=== PATIENT | female | born 1980 | race Caucasian/White ===

== ENCOUNTER 2022-06-13 13:53 | Outpatient (CLI) | payer OTHER, SELFPAY ==
--- NOTE | 2022-06-13 14:00 | CRLHL7_ITS ---
For Patients: As a result of the Cures Act, medical imaging exams and procedure reports are released immediately into your electronic medical record. You may view this report before your referring provider. If you have questions, please contact your health care provider. BILATERAL DIGITAL SCREENING MAMMOGRAM WITH TOMOSYNTHESIS AND COMPUTER-AIDED DETECTION CLINICAL HISTORY: Routine screening exam. COMPARISON: 06/10/2021, 06/08/2020, 06/06/2019. TECHNIQUE: Digital mammogram in CC and MLO projections including computer-aided detection (CAD). Tomosynthesis utilized. BREAST COMPOSITION: The breasts are heterogeneously dense, which may obscure small masses. FINDINGS: RIGHT Breast: Right CC view does not contain enough posterior tissue. LEFT Breast: No suspicious findings. IMPRESSION: Incomplete RIGHT CC view. Technical repeat indicated. RECOMMENDATIONS: Repeat RIGHT CC 3D mammogram. BI-RADS Category 0: Incomplete: Need Additional Imaging Evaluation [facility] will contact the patient for follow-up. A lay language report of this examination will be provided to the patient. Dictated by Rory Lozano MD @ 06/27/2022 1:08:45 PM jj/Dictated by: Rory Lozano MD @ 06/27/2022 1:08:00 PM (Electronically Signed) - ADDENDUM ----- REPEAT 3D CC MAMMOGRAM, TECHNICAL REPEAT CLINICAL HISTORY: Routine screening exam. COMPARISON: 06/10/2021, 06/08/2020, 06/06/2019 TECHNIQUE: Digital mammogram in CC projection including computer-aided detection (CAD). BREAST COMPOSITION: HETEROGENEOUSLY DENSE FINDINGS: RIGHT Breast: REPEAT 3D CC MAMMOGRAM SUBMITTED IS NORMAL. NORMAL FIBROGLANDULAR TISSUE. BENIGN CALCIFICATIONS LATERALLY. BIOPSY CLIP. IMPRESSION: Normal repeat 3D cc right breast mammogram. RECOMMENDATIONS: Routine annual bilateral screening mammography. BI-RADS Category 1: Negative. Dictated by Rory Lozano MD @ Jun 27 2022 1:08PM Signed by:?Rory Lozano MD @06/27/2022 1:53:53 PM (Electronic Signature)
== END 2022-06-13 13:54 | disposition home or self-care (01) ==
LOC: MAMMO 13:58
PROVIDERS: PCP Family Medicine; Visit Provider Internal Medicine Hematology & Oncology
DX: Z12.31 Encounter for screening mammogram for malignant neoplasm of breast (principal); R92.2 Inconclusive mammogram
CPT/HCPCS: 77063; 77067

== ENCOUNTER 2022-11-29 14:14 | Outpatient (CLI) | payer OTHER, MEDICAID, SELFPAY ==
--- NOTE | 2022-11-29 14:30 | CRLHL7_ITS ---
For Patients: As a result of the 21st Century Cures Act, medical imaging exams and procedure reports are released immediately into your electronic medical record. You may view this report before your referring provider. If you have questions, please contact your health care provider. BILATERAL BREAST MRI WITHOUT AND WITH GADOLINIUM CLINICAL HISTORY: 42-year-old female with BRCA2 gene mutation positive. Family history of breast cancer maternal age 60. Ovarian cancer in a maternal aunt at age 50. History of bilateral benign needle biopsies. INDICATION FOR BREAST MRI: Screening breast MRI in this high-risk woman. COMPARISON STUDIES: MRI 11/22/2021. Mammogram 06/13/2022 CONTRAST: 15 mL Dotarem TECHNIQUE: The patient was positioned prone using a breast coil. Multiple imaging sequences were obtained using 1-1.5 mm thick slices with no gap. The image sequences include T2-weighted STIR in the axial plane, T1-weighted nonfat-saturated gradient echo in the axial plane, pre- and post-contrast T1-weighted FLASH 3D with fat suppression in the axial plane, and T1-weighted FLASH high resolution 3D with fat suppression in the sagittal plane. Image post-processing was performed on a [employer] workstation. Complex 3D rendering including maximum intensity projections (MIPS) and volumetric renderings were obtained to optimize visualization of the extent of pathology and relationship to the nipple, skin, and chest wall. This aids in determining feasibility of breast conservation surgery. Subtraction, multiplanar reconstruction, mean curve determination, and angiogenesis mapping were also performed. The study was technically adequate. FINDINGS: Amount of Fibroglandular Tissue: Heterogeneous fibroglandular tissue. Breast Background Enhancement: Moderate. RIGHT/LEFT Breast: No suspicious mass or mass enhancement seen either breast. Nodular parenchymal enhancement. Lymph Nodes: No abnormal axillary lymph nodes. IMPRESSIONS AND RECOMMENDATIONS: 1. No MRI findings of malignancy in either breast. Recommend continue with yearly screening mammography alternating at 6 month intervals with screening mammograms. BI-RADS: 2 Dictated by Alyce Ordoñez MD @ 11/30/2022 9:19:46 AM (Electronically Signed)
== END 2022-11-29 14:15 | disposition home or self-care (01) ==
LOC: MRI 14:16
PROVIDERS: PCP Family Medicine; Visit Provider Internal Medicine Hematology & Oncology
DX: Z12.39 Encounter for other screening for malignant neoplasm of breast (principal); Z15.01 Genetic susceptibility to malignant neoplasm of breast
CPT/HCPCS: 77049; A9575

== ENCOUNTER 2023-06-15 07:35 | Outpatient (CLI) | payer OTHER, MEDICAID, SELFPAY ==
--- NOTE | 2023-06-15 07:45 | CRLHL7_ITS ---
For Patients: As a result of the Century Cures Act, medical imaging exams and procedure reports are released immediately into your electronic medical record. You may view this report before your referring provider. If you have questions, please contact your health care provider. BILATERAL SCREENING MAMMOGRAM WITH COMPUTER-AIDED DETECTION AND TOMOSYNTHESIS TECHNIQUE: CC and MLO views were obtained. These mammographic images have been obtained using full-field digital technique. These mammographic images were interpreted with the benefit of computer-aided detection. Breast tomosynthesis was used in this interpretation. COMPARISON FILM: 06/13/22, 06/10/21, 06/08/20. FINDINGS: The breasts are heterogeneously dense, which may obscure small masses. IMPRESSION: There is no radiographic evidence for malignancy. ASSESSMENT: BI-RADS Category 1: Negative RECOMMENDATION: Routine screening mammogram in 1 year. A lay language report of this examination will be provided to the patient. RORY SÁNCHEZ M.D. Diagnostic Radiologist [email or web address] Transcribed: 06/15/2023, 2:[address]/Dictated by: Rory Sánchez MD @ 06/15/2023 8:55:00 AM (Electronically Signed)
== END 2023-06-15 07:36 | disposition home or self-care (01) ==
LOC: MAMMO 07:36
PROVIDERS: PCP Family Medicine; Visit Provider Nurse Practitioner Adult Health
DX: Z12.31 Encounter for screening mammogram for malignant neoplasm of breast (principal); R92.2 Inconclusive mammogram
CPT/HCPCS: 77063; 77067

== ENCOUNTER 2023-10-26 12:03 | Emergency (ER) | payer BC, MEDICAID, SELFPAY ==
[2023-10-26 12:15] VITALS: BP 117/80; PULSE 78; RESP 16; TEMP 36.6; O2SAT 99; BMI 16.3
--- NOTE | 2023-10-26 12:39 | ED_ITS ---
HPI - General Adult General Chief complaint: Abdominal Pain Stated complaint: blood in urine Time Seen by Provider: 10/26/23 12:06 Source: patient Mode of arrival: ambulatory Limitations: no limitations History of Present Illness HPI narrative: 43-year-old female coming in today with abdominal pain and blood in her urine. Patient was diagnosed with a UTI about 1 week ago and finished her antibiotics. Her symptoms did resolve around day 3. However yesterday she developed right- sided abdominal pain that went from just below the lateral ribs all the way down to the groin. The pain was a 10/10 yesterday and she laid in bed most of the day. She felt nauseated but did not vomit. She had blood in her urine. She denies any fevers or chills. She did take ibuprofen and Tylenol around the clock yesterday. This morning she got up in her pain was significantly better down to a 3/10. She called her doctor to be seen and she had a virtual visit with blood work. Her CBC showed a white cell count of 4.5, hemoglobin of 12.8 and a platelet count of 164. Her UA showed trace leukocyte esterase and moderate blood with 11-25 rbc's. She had a creatinine checked which was 1.4. She states that her doctor told her to come to the ER to get an abdominal CT scan. Again, patient states that she feels much better today. She is no longer nauseated. And she did not see blood in her urine this morning. Her past surgical history is significant for appendectomy, total abdominal hysterectomy and bilateral oophorectomy. Related Data Allergies Allergy/AdvReac Type Severity Reaction Status Date / Time No Known Drug Allergies Allergy Verified 10/26/23 12:14 Review of Systems Status of ROS: Reports: 10 or more systems reviewed and unremarkable except as noted in History and below [facility] Social History Smoking Status: Never smoker How often do you have a drink containing alcohol: 2-4 times a month How many standard drinks containing alcohol do you have on a typical day: 1 or 2 AUDIT-C Alcohol total score: 2 Non-prescribed substance use: denies use Exam Narrative: Exam Narrative: Well-nourished well-developed patient in no acute distress. Alert and oriented. Answers questions appropriately. Mood and affect are appropriate. Thoughts are goal oriented and rational. No tangential or magical thinking noted. Patient speaks in full sentences without needing to catch her breath. She does not appear ill or toxic. HEENT: Normocephalic atraumatic. Pupils are equally round reactive to light. Extraocular muscles are intact. Conjunctivae are moist without any icterus noted. Moist mucous membranes. Cardiovascular: Heart is regular rate and rhythm S1 and S2 are present without any murmurs. Lungs: Clear to auscultation bilaterally no wheezes rhonchi or rales are appreciated. Patient takes deep breaths without any discomfort. Abdomen: Soft and nondistended with normal bowel sounds. No guarding or rebound. No masses or organomegaly appreciated. She has mild right sided abdominal tenderness, the worst of it is periumbilical. Extremities: Bilateral lower extremities are without edema. Skin: Well perfused without any obvious rashes. Const: Vital Signs, click to edit/add: Vital Signs - 24 hr 10/26/23 12:15 Temperature 97.9 F Pulse Rate [Pulse Oximeter] 78 Respiratory Rate 16 Blood Pressure [Ri ght Upper Arm] 117/80 Pulse Oximetry 99 Oxygen Delivery Me thod Room Air Course Course ED Course: I reviewed the patient's blood work from this morning as well as her symptoms. Her story is consistent with a kidney stone that passed overnight given the fact that she feels so much better today. I do not think that a CT scan is warranted at this time given that her symptoms have for the most part resolved. I do think that she should have her creatinine repeated tomorrow, if that is not possible to do at her home clinic then on Sunday. I do recommend that she return if her symptoms worsen. Other potential diagnoses includes colitis, cholelithiasis, pancreatitis. I do think that these things are unlikely given the location of her symptoms and concurrent hematuria. Given her surgical history we can rule out appendicitis an ectopic . Given that she is feeling better I do not think that she has bowel perforation or or other life-threatening illness. Given her fairly normal UA and CBC I do not think that she has a pyelonephritis. Vital Signs Vital signs: Initial Vital Signs Temperature 97.9 F 10/26/23 12:15 Temperature Source Temporal Artery Scan 10/26/23 12:15 Pulse Rate 78 10/26/23 12:15 Respiratory Rate 16 10/26/23 12:15 Blood Pressure 117/80 10/26/23 12:15 Blood Pressure Mean 92 10/26/23 12:15 Blood Pressure Position Sitting 10/26/23 12:15 Pulse Oximetry 99 10/26/23 12:15 Oxygen Delivery Method Room Air 10/26/23 12:15 Vital Signs Temperature 97.9 F 10/26/23 12:15 Pulse Rate 78 10/26/23 12:15 Respiratory Rate 16 10/26/23 12:15 Blood Pressure 117/80 10/26/23 12:15 Pulse Oximetry 99 10/26/23 12:15 Oxygen Delivery Method Room Air 10/26/23 12:15 Temperature 97.9 F 10/26/23 12:15 Pulse Rate 78 10/26/23 12:15 Respiratory Rate 16 10/26/23 12:15 Blood Pressure 117/80 10/26/23 12:15 Pulse Oximetry 99 10/26/23 12:15 Oxygen Delivery Method Room Air 10/26/23 12:15 Medical Decision Making MDM Narrative Medical decision making narrative: 43-year-old female with abdominal pain. Given her lab work and history this is likely a kidney stone that has passed. Return to ER for worsening symptoms. Lab Data Lab results reviewed: Yes I reviewed the patient's lab results Discharge Plan Discharge Clinical Impression: Abdominal pain Patient Disposition: Home, Self-Care Condition: Stable Additional Instructions: Is very likely that you had a kidney stone that has now passed. Given that you are feeling much better than you were yesterday, I do not think that a CT scan is necessary at this time. I would recommend that you recheck your creatinine (this is the lab that gives us an idea of how well your kidneys are functioning) tomorrow at [facility] or on Sunday, if checking in over the weekend is not a possibility at your clinic. I recommend that you call your doctor today and let them know that you need a repeat creatinine in the next 24 hours if possible, otherwise on Sunday and have them order this for you. I do recommend that you return to the emergency room if your pain gets worse again, you develop a fever or vomiting. Okay to use Tylenol for discomfort, I would recommend not using ibuprofen for the next couple of weeks as this can affect your kidney function also. Lastly, increase your water intake for the next 3 days. Follow Up/Referrals: Neela Sequeira MD [Primary Care Provider] - Stand Alone Forms: [facility] Info Instructions
== END 2023-10-26 12:57 | disposition home or self-care (01) ==
LOC: ED 12:51
PROVIDERS: Emergency Provider Family Medicine; PCP Family Medicine
DX: R10.9 Unspecified abdominal pain (principal)
CPT/HCPCS: 99283; 99284

== ENCOUNTER 2024-01-29 09:05 | Outpatient (CLI) | payer BC, MEDICAID, SELFPAY ==
--- NOTE | 2024-01-29 09:15 | CRLHL7_ITS ---
For Patients: As a result of the Century Cures Act, medical imaging exams and procedure reports are released immediately into your electronic medical record. You may view this report before your referring provider. If you have questions, please contact your health care provider. BILATERAL BREAST MRI CAD WITHOUT AND WITH GADOLINIUM, 01/28/2024 CLINICAL HISTORY: Patient with BRCA-2 gene mutation. Family history of breast cancer in maternal aunt at age 60. Also family history of ovarian cancer in maternal aunt at age 58. History of BILATERAL benign biopsies. INDICATION FOR BREAST MRI: Screening breast MRI in this high-risk woman. COMPARISON STUDIES: MR 11/29/2022. Mammogram 06/15/2023. CONTRAST: 15 cc Dotarem. TECHNIQUE: The patient was positioned prone using a breast coil. Multiple imaging sequences were obtained using 1-1.5 mm thick slices with no gap. The image sequences include T2-weighted STIR in the axial plane, T1-weighted nonfat-saturated gradient echo in the axial plane, pre- and post-contrast T1-weighted FLASH 3D with fat suppression in the axial plane, and T1-weighted FLASH high-resolution 3D with fat suppression in the sagittal plane. Image post-processing was performed on a [employer] workstation. Complex 3D rendering including maximum intensity projections (MIPS) and volumetric renderings were obtained to optimize visualization of the extent of pathology and relationship to the nipple, skin, and chest wall. This aids in determining feasibility of breast conservation surgery. Subtraction, multiplanar reconstruction, mean curve determination, and angiogenesis mapping were also performed. The study was technically adequate. FINDINGS: Amount of Fibroglandular Tissue: Heterogeneous fibroglandular tissue. Breast Background Enhancement: Mild. RIGHT and LEFT Breast: No suspicious enhancement in either breast. Lymph Nodes: No morphologically abnormal axillary lymph nodes. IMPRESSIONS AND RECOMMENDATIONS: No MRI findings for malignancy in either breast. No morphologically abnormal axillary lymph nodes. Recommend continuing with yearly screening mammography. If screening MRI is felt to be necessary, recommending those be offset by six-month interval from the screening mammogram. BI-RADS: BI-RADS Category 2: Benign Alyce Ordoñez M.D. Diagnostic/Breast Radiologist [email or web address] ROSALIE/rhett / be/Dictated by: Alyce Ordoñez MD @ 01/29/2024 12:46:00 PM (Electronically Signed)
== END 2024-01-29 09:06 | disposition home or self-care (01) ==
LOC: MRI 09:05
PROVIDERS: PCP Family Medicine; Visit Provider Nurse Practitioner Adult Health
DX: Z12.39 Encounter for other screening for malignant neoplasm of breast (principal); N64.89 Other specified disorders of breast; Z15.01 Genetic susceptibility to malignant neoplasm of breast; Z80.3 Family history of malignant neoplasm of breast
CPT/HCPCS: 77049; A9575

== ENCOUNTER 2024-07-24 08:58 | Outpatient (CLI) | payer BC, MEDICAID, SELFPAY ==
--- OUTSIDE RECORDS SUMMARY | 2024-07-21 13:57 | XMS_ITS | Data Portability ---
Author Organization [place] [facility] [place] [facility], [facility] Address [address] [place] [address] Assessment Encounter Date Assessment Date Assessment LastModified by Organization Details LastModified Time 11/23/2023 11/23/2023 43F with ureteral stones. On my review of her CT scan, she has a right UVJ stone closer to 6 mm and a proximal left ureteral stone closer to 8-9 mm in size. She reports passing a stone about 2 weeks ago. Discussed medical expulsive therapy versus surgical intervention including options of URS/HLL/stent, and their respective risks/complicat ions including but not limited to post-procedure pain or stent pain, infection/UTI/s epsis, hematuria, anesthesia reaction, injury to adjacent structures, and possible need for additional/stag ed procedure. She would like to proceed with surgery. 1. Left UPJ/proximal ureteral stone - reviewed outside CT scan, labs, PCP notes - discussed medical expulsive therapy versus surgical intervention -- with size of stone, likely to need surgical intervention and this is her preference as well - continue PRN pain meds - return precautions for ER discussed-- worsening pain, fever/chills, N/V, other concerns - schedule for cysto, left URS/HLL/uretera l stent placement Also reviewed CT with Dr. Drew. [email or web address] Not available 11/23/2023 17:29:41 Plan of Treatment Reminders Order Date Submit Date Provider Last Modified By Organization Details Last Modified Time Details Appointments None recorded. Lab urinalysis , dipstick 2023 024 [email or web address] 30 [facility], [address], [place], [address], 10:11:07 Referral None recorded. Procedures None recorded. Surgeries None recorded. Imaging None recorded. Medication Orders None recorded. Patient TargetsNo targets recorded. Patient InstructionsNo instructions recorded. Reason for Referral None Reported. Results Created Date Observation Date Name Description Value Unit Range Abnormal Flag Note LastModifiedBy Organization Detail LastModifiedTime 11/23/19 24 11/23/2023 urina lysis , dipst ick Color-Status Yellow Not Available [facility] [address], [place], [address], 11/23/2023 10:10:37 11/23/19 24 11/23/2023 urina lysis , dipst ick pH-Status 5.5 Not Available [facility] [address], [place], [address], 11/23/2023 10:10:37 11/23/19 24 11/23/2023 urina lysis , dipst ick Nitrates-Sta tus negati ve Not Available [facility] [address], [place], [address], 11/23/2023 10:10:37 11/23/19 24 11/23/2023 urina lysis , dipst ick Blood-Status Trace Not Available [facility] [address], [place], [address], 11/23/2023 10:10:37 11/23/19 24 11/23/2023 urina lysis , dipst ick Leuko-Status Small Not Available [facility] [address], [place], [address], 11/23/2023 10:10:37 11/20/19 24 11/01/2023 CT, abdom en + pelvi s, w/o contr ast No observ ation record ed. [email or web address] Not Available 11/19 18:01:41 Result Notes None recorded. Problems Name Problem SNOMED Code Status Onset Date Resolution Date Notes Provider Name and Address Organization Details Recorded Time Ureteric stone 47049670 Active Joceline Bolden PA-C [address] [facility],[address], [place], [address] , [facility] 18:13:26 Problem Notes None recorded. Procedures Surgical History Date Name Laterality Status Provider Name and Address Organization Details Recorded Time Appendectomy completed [facility] 11/23/2023 10:09:52 Total Hysterectomy completed [facility] 11/23/2023 10:09:58 oophorectomy completed [facility] 11/23/2023 10:10:04 section completed [facility] 11/23/2023 10:10:09 Imaging Results Imaging Date Name Status LastModified by Organiz ation Details LastModified Time 11/01/2023 CT, abdomen + pelvis, w/o contrast completed [email or web address] Information not available 11/20/2023 18:01:41 Procedure Notes None recorded. Medical Equipment None Reported. Allergies Allergen ID Allergen Name Allergen Category Reaction Reaction Severity Criticality Documentation Date Start Date Code Code System Note Provider Name and Address Organization Details Recorded Time [id number] 2824e iodine medicatio n Not available Not available Not available 11/23/2023 5933 RxNorm Not Available Not Available Not Available [id number] 2824e adhesive environme nt,medica tion Not available Not available Not available 11/23/2023 13034 UNK Not Available Not Available Not Available Medications Name Sig Start Date Stop Date Status Note LastModified by Organization Details LastModified Time gabapentin 600 mg tablet TAKE 1 TABLET BY MOUTH AT BEDTIME active Not Available Not Available No t Available methylpheni date 10 mg tablet TAKE 1 TABLET BY MOUTH DAILY IN THE AFTERNOON NEEDED active Not Available Not Available No t Available valacyclovi r 1 gram tablet TAKE 1 TABLET BY MOUTH TWICE DAILY active Not Available Not Available No t Available methylpheni date 5 mg tablet TAKE 1 TABLET BY MOUTH DAILY IN THE AFTERNOON NEEDED 11/22 completed Not Available Not Available Not Available clonazepam 0.5 mg tablet TAKE 1 TABLET BY MOUTH DAILY NEEDED FOR ANXIETY active Not Available Not Available No t Available methylpheni date ER 10 mg tablet,exte nded release TAKE 1 TABLET BY MOUTH EVERY MORNING. SWALLOW WHOLE 11/22 completed Not Available Not Available Not Available tamsulosin 0.4 mg capsule 11/22 completed Not Available Not Available Not Available cephalexin 500 mg capsule TAKE 1 CAPSULE BY MOUTH FOUR TIMES DAILY 11/22 completed Not Available Not Available Not Available methylpheni date ER 20 mg tablet,exte nded release TAKE 1 TABLET BY MOUTH DAILY IN THE AFTERNOON NEEDED active Not Available Not Available No t Available metronidazo le 0.75 % topical cream APPLY TOPICALLY TO FACE TWICE DAILY active Not Available Not Available No t Available gabapentin 300 mg capsule TAKE 1 CAPSULE BY MOUTH TWICE DAILY active Not Available Not Available No t Available gabapentin 100 mg capsule TAKE 1 CAPSULE BY MOUTH THREE TIMES DAILY NEEDED FOR ANXIETY active Not Available Not Available No t Available methylpheni date ER 27 mg tablet,exte nded release 24 hr TAKE 1 TABLET BY MOUTH DAILY IN THE AFTERNOON NEEDED active Not Available Not Available No t Available nitrofurant oin monohydrate /macrocryst als 100 mg capsule 11/22 completed Not Available Not Available Not Available desvenlafax ine succinate ER 50 mg tablet,exte nded release 24 hr TAKE 1 TABLET BY MOUTH DAILY 11/22 completed Not Available Not Available Not Available desvenlafax ine succinate ER 100 mg tablet,exte nded release 24 hr TAKE 1 TABLET BY MOUTH DAILY active Not Available Not Available No t Available desvenlafax ine succinate ER 25 mg tablet,exte nded release 24 hr TAKE 1 TABLET BY MOUTH DAILY 11/22 completed Not Available Not Available Not Available Vitals Date Recorded Body height Body mass index (BMI) Body weight Provider Name and Address Organization Details Last Updated DateTime 11/23/2023 182.88 cm 17 kg/m2 20935.05 g Emily Villagomez [facility] 11/23/2023 10:07:29 Social History Question Answer Notes LastModified by Organizat ion Details LastModified Time Tobacco Smoking Status Never Smoker Emily young [facility] 11/23/2023 10:09:44 What Is Your Level Of Alcohol Consumption? Occasional Information not available 11/23/2023 What Is Your Level Of Caffeine Consumption? Moderate [email or web address] Information not available 11/23/2023 What Was The Date Of Your Most Recent Tobacco Screening? 11/23/2023 [email or web address] Information not available 11/23/2023 Have You Ever Been Counseled For Unhealthy Alcohol Use? No Information not available 11/23/2023 How Many Days In The Past Year Have You Consumed 4 Or More Drinks? 0 [email or web address] Information not available 11/23/2023 Sex: Unknown Functional Status None recorded. Mental Status None recorded. Family History Nothing Reported. Medical History Condition Response Kidney Stones Y Depression Y Gynecological HistoryNo gynecological history recorded. Obstetrics History GPAL:G 0 P 0 0 0 0 Immunizations Vaccine Type Date Status Note Provider Nam e and Address Organization Details Recorded Time Influenza, split virus, quadrivalent, preservative 9 completed Emily Villagmoez [facility] 11/23/2023 10:07:37 Influenza, recombinant, quadrivalent, PF [facility] 10:07:37 COVID-19, mRNA, LNP-S, PF, 100 mcg/0.5mL dose or 50 mcg/0.25mL dose [facility] 10:07:37 COVID-19, mRNA, LNP-S, PF, 30 mcg/0.3 mL dose [facility] 10:07:37 COVID-19, mRNA, LNP-S, PF, 30 mcg/0.3 mL dose 1 [facility] 10:07:37 COVID-19, mRNA, LNP-S, bivalent, PF, 30 mcg/0.3 mL dose 2 [facility] 10:07:37 [facility] 10:07:37 Tdap 7 completed Emilyoralia Larsona null, [facility] 11/23/2023 10:07:37 Tdap 9 completed Emily Larsona null, [facility] 11/23/2023 10:07:37 Influenza, split virus, trivalent, PF 1 completed Emilyoralia Villagomez null, [facility] 11/23/2023 10:07:37 Influenza, split virus, quadrivalent, PF 3 completed Emilyoralia Larsona null, [facility] 11/23/2023 10:07:37 Influenza, split virus, quadrivalent, PF 5 completed Emily Larsona hannah, [facility] 11/23/2023 10:07:37 Influenza, split virus, quadrivalent, PF 1 completed Emilyoralia young, [facility] 11/23/2023 10:07:37 Past Encounters Encounter ID Performer Location Encounter Start Date Encounter Closed Date Diagnosis/Indication Diagnosis SNOMED-CT Code Diagnosis ICD10 Code [id number] Swati Bolden PA-C [facility] [address] [place] [address] 11/23/2023 09:54:35 11/26/2023 11:00:43 Ureteric stone 49713097 N20.1 Health Concerns Section Related Observation LastModified by Organization Detai ls LastModified Time None Recorded Concern Status LastModified by Organization Details LastModified Time None Recorded Advance Directives Directive None Recorded Payers Encounter Date Sequence Insurance Name Policy Number Policy Scott Covered Member ID Scott Member ID Guarantor Name 11/23/2023 1 [place] [id number] Maile Mittal [id number] Maile Mittal 11/23/2023 2 [place] Maile Mittal [id number] Maile Mittal Notes Date Note Type Note Provider Name and Address Organization Details Recorded Time 11/23/2023 text/html 43F with bilater al ureteral stones. Seen at [facility] on 10/25 for suspected UTI, but was also having gross hematuria and flank pain. Pain improved, but then worsened on 10/[address] on 11/01/23 which demonstrated a 5 mm right UVJ stone and 6 mm proximal left/UPJ stone (see results below). She did pass one stone a few days after her CT scan when she saw her PCP for follow up - does not have the stone unfortunately. Also had some gross hematuria around that time. Most of pain was on the right side. She states she has not had any pain on the left side. No recent nausea or vomiting. Denies dysuria, fever, or chills.UA today trace blood, small leuks Labs: Imaging: (reviewed)11/01/23 CT A/P: 5 mm right UVJ stone and 6 mm proximal left ureteral stone (on my review, the right UVJ stone is closer to 6 mm and proximal left stone is closer to 8-9 mm in size) Swati Bolden PA-C [address] [facility],[address], [place], [address], [facility] 11/23/2023 17:30:07 OBGyn Episode No OBEpisode recorded.
--- NOTE | 2024-07-24 09:15 | CRLHL7_ITS ---
For Patients: As a result of the Century Cures Act, medical imaging exams and procedure reports are released immediately into your electronic medical record. You may view this report before your referring provider. If you have questions, please contact your health care provider. BILATERAL SCREENING MAMMOGRAM WITH COMPUTER-AIDED DETECTION AND TOMOSYNTHESIS TECHNIQUE: CC and MLO views were obtained. These mammographic images have been obtained using full-field digital technique. These mammographic images were interpreted with the benefit of computer-aided detection. Breast Tomosynthesis was used in this interpretation. COMPARISON FILM: 06/15/23, 06/13/22, 06/10/21. FINDINGS: The breasts are heterogeneously dense, which may obscure small masses IMPRESSION: There is no radiographic evidence for malignancy. ASSESSMENT: BI-RADS Category 2: Benign RECOMMENDATION: Routine screening mammogram in 1 year. A lay language report of this examination will be provided to the patient. Rory Lozano M.D. Diagnostic Radiologist [email or web address] BETINA/teddy / bM/Dictated by: Rory Lozano MD @ 07/24/2024 10:03:00 AM (Electronically Signed)
== END 2024-07-24 08:59 | disposition home or self-care (01) ==
LOC: MAMMO 08:59
PROVIDERS: PCP Family Medicine; Visit Provider Nurse Practitioner Adult Health
DX: Z12.31 Encounter for screening mammogram for malignant neoplasm of breast (principal); R92.333 Mammographic heterogeneous density, bilateral breasts
CPT/HCPCS: 77063; 77067

== ENCOUNTER 2025-01-29 12:54 | Outpatient (CLI) | payer BC, MEDICAID, SELFPAY ==
--- NOTE | 2025-01-29 13:00 | CRLHL7_ITS ---
For Patients: As a result of the Century Cures Act, medical imaging exams and procedure reports are released immediately into your electronic medical record. You may view this report before your referring provider. If you have questions, please contact your health care provider. BILATERAL BREAST MRI WITHOUT AND WITH GADOLINIUM CLINICAL HISTORY: BRCA 2 gene positive. Strong family history breast cancer and ovarian cancer. Personal history of fibroadenoma left breast biopsy-proven. INDICATION FOR BREAST MRI: Increased risk for breast cancer COMPARISON STUDIES: Bilateral mammogram 07/24/2024, breast MRI 11/29/2022, 11/22/2021 CONTRAST: Dotarem 20 mL mL Clariscan IV. TECHNIQUE: The patient was positioned prone using a breast coil. Multiple imaging sequences were obtained using 1-1.5 mm thick slices with no gap. The image sequences include T2-weighted STIR in the axial plane, T1-weighted nonfat-saturated gradient echo in the axial plane, pre- and post-contrast T1-weighted FLASH 3D with fat suppression in the axial plane, and T1-weighted FLASH high resolution 3D with fat suppression in the sagittal plane. Image post-processing was performed on a [employer] workstation. Complex 3D rendering including maximum intensity projections (MIPS) and volumetric renderings were obtained to optimize visualization of the extent of pathology and relationship to the nipple, skin, and chest wall. This aids in determining feasibility of breast conservation surgery. Subtraction, multiplanar reconstruction, mean curve determination, and angiogenesis mapping were also performed. The study was technically adequate. FINDINGS: Amount of Fibroglandular Tissue: Heterogeneous Breast Background Enhancement: Moderate RIGHT Breast: No suspicious mass or non-mass enhancement marker clip from prior benign biopsy. LEFT Breast: No suspicious mass or non-mass enhancement. Marker clip from prior benign biopsy. Lymph Nodes: No suspicious lymph node IMPRESSIONS AND RECOMMENDATIONS: Negative for signs of malignancy. Follow-up with annual screening mammography. If continuing breast MRI this is best offset from the mammogram by 6 months. BI-RADS: 2-benign Dictated by Shelia Rouse MD @ 02/06/2025 12:40:06 PM (Electronically Signed)
== END 2025-01-29 12:55 | disposition home or self-care (01) ==
LOC: MRI 12:58
PROVIDERS: PCP Family Medicine; Visit Provider Nurse Practitioner Adult Health
DX: Z12.39 Encounter for other screening for malignant neoplasm of breast (principal); Z15.01 Genetic susceptibility to malignant neoplasm of breast; Z80.3 Family history of malignant neoplasm of breast
CPT/HCPCS: 77049; A9575